=== PATIENT | male | born 1965 | race Caucasian/White ===

== ENCOUNTER 2019-05-09 08:40 | Emergency (ER) | payer OTHER ==
--- NOTE | 2019-05-09 11:08 | RAD REPORT ---
EXAM DESCRIPTION: US - Extremity Nonvascular Limited - 05/09/2019 10:56 am CLINICAL HISTORY: Knee COMPARISON: None FINDINGS: The left popliteal fossa is unremarkable. A Vang cyst is not visualized IMPRESSION: Negative for a Vang's cyst
--- NOTE | 2019-05-09 11:27 | EDPHYS ---
Physician Documentation [facility] Name: Angel Ulloa Age: 54 yrs Sex: Male : 1965 Arrival Date: 05/09/2019 Time: 08:44 Bed 18 Private MD: ED Physician Kal Grullon HPI: 05/09 09:24 This 54 yrs old Male presents to ER via Ambulatory with complaints of Leg kdr Pain. 09:24 The patient presents with decreased range of motion, an injury, pain, that is acute. kdr The complaints affect the posterior aspect of left knee and left calf. Context: The problem was sustained at home, resulted from Walking, the patient is not able to bear weight, the patient is not able to ambulate, Problem is a result from a previous injury: No. Onset: The symptoms/episode began/occurred acutely, today, at 08:10. Modifying factors: The symptoms are alleviated by remaining still, the symptoms are aggravated by movement, weight bearing, bending knee. Associated signs and symptoms: The patient has no apparent associated signs or symptoms. Treatment prior to arrival includes: kathleen wrap, icing the affected extremity. Severity of symptoms: At their worst the symptoms were severe, in the emergency department the symptoms are unchanged. The patient has not experienced similar symptoms in the past. The patient has not recently seen a physician. Historical: - Allergies: 09:06 Hydrocodone-Acetaminophen; em - Home Meds: 09:06 Lyrica Oral [Active]; Metformin Oral [Active]; simvastatin 10 mg Oral tab 1 tab once em daily [Active]; carvedilol 25 mg oral tab [Active]; aspirin 81 mg Oral chew 1 tab once daily [Active]; losartan 100 mg oral tab 1 tab once daily [Active]; Cialis 5 mg oral tab 1 tab [Active]; victoza 1.8 mg [Active]; Dexilant 60 mg oral CpDB [Active]; - PMHx: 09:06 Hypertension; Pneumonia; Diabetes - NIDDM; em - PSHx: 09:06 Cholecystectomy; incision and drainage; lumbar surgery; em - Immunization history:: Adult Immunizations up to date. - Social history:: Smoking status: Patient uses tobacco products, smokes one pack cigarettes per day. - Ebola Screening: : Patient negative for fever greater than or equal to 101.5 degrees Fahrenheit, and additional compatible Ebola Virus Disease symptoms Patient denies exposure to infectious person Patient denies travel to an Ebola-affected area in the 21 days before illness onset No symptoms or risks identified at this time. ROS: 10:44 Constitutional: Negative for fever, chills, and weight loss. kdr 10:44 MS/extremity: Positive for injury or acute deformity, decreased range of motion, pain, tenderness, of the posterior aspect of left knee and left calf. Exam: 10:44 Constitutional: This is a well developed, well nourished patient who is awake, alert, kdr and in no acute distress. Head/Face: Normocephalic, atraumatic. Eyes: Pupils equal round and reactive to light, extra-ocular motions intact. Lids and lashes normal. Conjunctiva and sclera are non-icteric and not injected. Cornea within normal limits. Periorbital areas with no swelling, redness, or edema. Neck: Trachea midline, no thyromegaly or masses palpated, and no cervical lymphadenopathy. Supple, full range of motion without nuchal rigidity, or vertebral point tenderness. No Meningismus. Chest/axilla: Normal chest wall appearance and motion. Nontender with no deformity. No lesions are appreciated. Cardiovascular: Regular rate and rhythm with a normal S1 and S2. No gallops, murmurs, or rubs. Normal PMI, no JVD. No pulse deficits. Abdomen/GI: Soft, non-tender, with normal bowel sounds. No distension or tympany. No guarding or rebound. No evidence of tenderness throughout. Back: No spinal tenderness. No costovertebral tenderness. Full range of motion. Skin: Warm, dry with normal turgor. Normal color with no rashes, no lesions, and no evidence of cellulitis. MS/ Extremity: Pulses equal, no cyanosis. Neurovascular intact. Full, normal range of motion. Neuro: Awake and alert, GCS 15, oriented to person, place, time, and situation. Cranial nerves II-XII grossly intact. Motor strength 5/5 in all extremities. Sensory grossly intact. Cerebellar exam normal. Normal gait. Psych: Awake, alert, with orientation to person, place and time. Behavior, mood, and affect are within normal limits. 10:44 Musculoskeletal/extremity: Extremities: grossly normal except: noted in the posterior kdr aspect of left knee and left calf: decreased ROM, pain, tenderness, Circulation is intact in all extremities. Sensation intact. Compartment Syndrome exam of affected extremity: is normal. no numbness, no tingling, no sensation deficit, no palor, no weak pulses, Weight bearing: can bear weight with assistance only. Vital Signs: 09:06 BP 140 / 99; Pulse 86; Resp 18; Temp 98.1(O); Pulse Ox 100% on R/A; Weight 106.59 kg; em Height 6 ft. 1 in. (185.42 cm); Pain 3/10; 10:08 BP 130 / 89; Pulse 84; Resp 16; Pulse Ox 99% on R/A; em 11:32 BP 141 / 86; Pulse 79; Resp 16; Pulse Ox 98% on R/A; em 09:06 Body Mass Index 31.00 (106.59 kg, 185.42 cm) em MDM: 11:26 Patient medically screened. kdr 12:28 Data reviewed: vital signs, nurses notes, lab test result(s), radiologic studies. kdr Counseling: I had a detailed discussion with the patient and/or guardian regarding: the historical points, exam findings, and any diagnostic results supporting the discharge/admit diagnosis, lab results, radiology results, the need for outpatient follow up. 05/09 09:23 Order name: US Extrmty Nonvasular Limited 05/09 09:23 Order name: Knee Left 3 View XRAY 05/09 10:47 Order name: Knee Immobilizer; Complete Time: 12:17 kdr 05/09 10:47 Order name: Crutches; Complete Time: 12:17 kdr Administered Medications: No medications were administered Disposition: 05/09/19 11:26 Discharged to Home. Impression: Pain in left knee, Sprain of other specified parts of knee. - Condition is Stable. - Discharge Instructions: Joint Pain, Musculoskeletal Pain, Crutch Use, Hypg-gi-Uwnh, Knee Pain, [id number]-Azfs. - Prescriptions for Tylenol- Codeine #3 300-30 mg Oral Tablet - take 2 tablets by ORAL route every 6 hours As needed; 16 tablet. - Medication Reconciliation Form, Thank You Letter, Work release form form. - Follow up: Private Physician; When: 2 - 3 days; Reason: If symptoms return, Further diagnostic work-up, Recheck today's complaints, Continuance of care, Re-evaluation by your physician. - Problem is new. - Symptoms have improved. Signatures: Dispatcher [employer] Kal Solis MD MD kdr Munoz, Edgar, ED TECH ED TECH em Corrections: (The following items were deleted from the chart) 12:21 11:26 05/09/2019 11:26 Discharged to Home. Impression: Pain in left knee; Sprain of em other specified parts of knee. Condition is Stable. Forms are Medication Reconciliation Form, Thank You Letter, Antibiotic Education, Prescription Opioid Use. Follow up: Private Physician; When: 2 - 3 days; Reason: If symptoms return, Further diagnostic work-up, Recheck today's complaints, Continuance of care, Re-evaluation by your physician. Problem is new. Symptoms have improved. kdr
--- NOTE | 2019-05-09 11:27 | ER ---
Nurse's Notes [facility] Name: Angel Ulloa Age: 54 yrs Sex: Male : 1965 Arrival Date: 05/09/2019 Time: 08:44 Bed 18 Private MD: Diagnosis: Pain in left knee;Sprain of other specified parts of knee Presentation: 05/09 08:58 Presenting complaint: Patient states: was walking about 1 hour ago and felt a pop on em the left leg behind left knee/top of calf area, no swelling or bruising noted, denies trauma. Transition of care: patient was not received from another setting of care. Onset of symptoms was May 09, 2019. Risk Assessment: Do you want to hurt yourself or someone else? Patient reports no desire to harm self or others. Initial Sepsis Screen: Does the patient meet any 2 criteria? No. Patient's initial sepsis screen is negative. Does the patient have a suspected source of infection? No. Patient's initial sepsis screen is negative. Care prior to arrival: ice pack applied to left calf area/behind left knee. 08:58 Method Of Arrival: Ambulatory em 09:11 Acuity: [place] 4 iw Historical: - Allergies: 09:06 Hydrocodone-Acetaminophen; em - Home Meds: 09:06 Lyrica Oral [Active]; Metformin Oral [Active]; simvastatin 10 mg Oral tab 1 tab once em daily [Active]; carvedilol 25 mg oral tab [Active]; aspirin 81 mg Oral chew 1 tab once daily [Active]; losartan 100 mg oral tab 1 tab once daily [Active]; Cialis 5 mg oral tab 1 tab [Active]; victoza 1.8 mg [Active]; Dexilant 60 mg oral CpDB [Active]; - PMHx: 09:06 Hypertension; Pneumonia; Diabetes - NIDDM; em - PSHx: 09:06 Cholecystectomy; incision and drainage; lumbar surgery; em - Immunization history:: Adult Immunizations up to date. - Social history:: Smoking status: Patient uses tobacco products, smokes one pack cigarettes per day. - Ebola Screening: : Patient negative for fever greater than or equal to 101.5 degrees Fahrenheit, and additional compatible Ebola Virus Disease symptoms Patient denies exposure to infectious person Patient denies travel to an Ebola-affected area in the 21 days before illness onset No symptoms or risks identified at this time. Screenin:06 Abuse screen: Denies threats or abuse. Nutritional screening: No deficits noted. em Tuberculosis screening: No symptoms or risk factors identified. Fall Risk None identified. Assessment: 09:06 General: Appears in no apparent distress. comfortable, Behavior is calm, cooperative, em Denies fever. Pain: Complains of pain in left calf and posterior aspect of left knee Pain currently is 4 out of 10 on a pain scale. at worst was 8 out of 10 on a pain scale. Pain began 2 hours ago. Neuro: Level of Consciousness is awake, alert, obeys commands, Oriented to person, place, time, situation. Cardiovascular: Capillary refill < 3 seconds Patient's skin is warm and dry. Respiratory: Airway is patent Respiratory effort is even, unlabored, Respiratory pattern is regular, symmetrical. Derm: Skin is intact, is healthy with good turgor, Skin is pink, warm \T\ dry. Musculoskeletal: Capillary refill < 3 seconds, Range of motion: limited in left knee Swelling absent. 11:32 Reassessment: Patient appears in no apparent distress at this time. Patient and/or em family updated on plan of care and expected duration. Pain level reassessed. Patient is alert, oriented x 3, equal unlabored respirations, skin warm/dry/pink. 11:50 Reassessment: Dr. Grullon at bedside. em Vital Signs: 09:06 BP 140 / 99; Pulse 86; Resp 18; Temp 98.1(O); Pulse Ox 100% on R/A; Weight 106.59 kg; em Height 6 ft. 1 in. (185.42 cm); Pain 3/10; 10:08 BP 130 / 89; Pulse 84; Resp 16; Pulse Ox 99% on R/A; em 11:32 BP 141 / 86; Pulse 79; Resp 16; Pulse Ox 98% on R/A; em 09:06 Body Mass Index 31.00 (106.59 kg, 185.42 cm) em ED Course: 08:44 Patient arrived in ED. mr 08:46 Kal Grullon MD is Attending Physician. kdr 08:51 [place] Haque LVN is Primary Nurse. em 09:06 Arm band placed on. em 09:06 Patient has correct armband on for positive identification. Placed in gown. Bed in low em position. Call light in reach. Pulse ox on. NIBP on. 09:11 Triage completed. iw 12:00 Crutch training done. Knee immobilizer applied on left knee. em 12:18 No provider procedures requiring assistance completed. Patient did not have IV access em during this emergency room visit. Administered Medications: No medications were administered Outcome: 11:26 Discharge ordered by . kdr 12:18 Discharged to home via wheelchair. em 12:18 Condition: good 12:18 Discharge instructions given to patient, Instructed on discharge instructions, follow up and referral plans. medication usage, crutch walking, Demonstrated understanding of instructions, follow-up care, medications, Prescriptions given X 1. 12:21 Patient left the ED. em Signatures: Kal Grullon MD MD kdr Rivera, Mary mr Munoz, Edgar, WAREHOUSE WORKER 2ND SHIFT WAREHOUSE WORKER 2ND SHIFT em Dennise Boston, RN RN iw
--- NOTE | 2019-05-09 11:49 | RAD REPORT ---
EXAM DESCRIPTION: RAD - Knee Left 3 View - 05/09/2019 11:42 am CLINICAL HISTORY: Left knee pain status post injury FINDINGS: No fracture or dislocation is seen.
== END 2019-05-09 12:21 | disposition home or self-care (01) ==
LOC: ER 08:40
DX: S83.92XA Sprain of unspecified site of left knee, initial encounter (principal); I10 Essential (primary) hypertension; E11.9 Type 2 diabetes mellitus without complications; Y93.01 Activity, walking, marching and hiking; Y93.89 Activity, other specified; Y92.9 Unspecified place or not applicable; Z88.6 Allergy status to analgesic agent
CPT/HCPCS: 76882; 99283

== ENCOUNTER 2021-09-23 09:30 | Day surgery (SDC) | payer OTHER ==
[2021-09-21 14:48] LABS: Absolute Lymphocytes (CBC) 2.2 K/uL (0.7-4.9); Hematocrit 54.8 % (39.6-49.0); Lymphocytes % 20.4 % (15.3-44.8); MPV 9.1 fL (7.6-11.3); RBC Red Blood Cell Count 6.49 M/uL (4.33-5.43)
[2021-09-21 14:49] LABS: Protime INR 0.98
--- NOTE | 2021-09-21 14:52 | RAD REPORT ---
EXAM DESCRIPTION: RAD - Chest Pa And Lat (2 Views) - 09/21/2021 2:32 pm CLINICAL HISTORY: pre op pending arm surgery COMPARISON: CHEST PA AND LAT 2 VIEW dated 01/05/2010; CHEST SINGLE VIEW dated 05/27/2009 FINDINGS: Lines: None. Lungs: No evidence of edema or pneumonia. Pleural: No significant pleural effusions or pneumothorax. Cardiac: The heart size is within normal limits. Bones: No acute fractures. ACDF in the cervical spine. Other: IMPRESSION: No acute cardiopulmonary disease.
[2021-09-21 14:56] LABS: Potassium 4.1 mmol/L (3.5-5.1)
[2021-09-23] MEDS ORDERED: NA CHLORIDE 0.9% 1,000 ML ONE (09:51)
[2021-09-23] MEDS ORDERED: CEFAZOLIN/SWI 2gm 2 GM/20 ML SYR ONE (09:51)
[2021-09-23] MEDS ORDERED: FENTANYL CITR 100 MCG/2 ML ONE ×2 (10:38→12:45)
[2021-09-23] MEDS ORDERED: LIDOCAINE 1% MPF 5 ML VIAL ONE (10:39)
[2021-09-23] MEDS ORDERED: propofoL 200 MG/20 ML VIAL IV ONE (10:39)
[2021-09-23] MEDS ORDERED: MIDAZOLAM HCL 2 MG/2 ML INJ ONE (10:39)
--- NOTE | 2021-09-23 14:17 | P.BOP ---
Preoperative diagnosis: left distal biceps rupture Postoperative diagnosis: same Primary procedure: left distal biceps repair Project Control Analyst: NONE,NONE Estimated blood loss: 10 cc Specimen: none Findings: see dictation Anesthesia: General Complications: None Implants: Arthrex distal biceps button Fluids & blood products: per anesthesia record Transferred to: Recovery Room Condition: Good
[2021-09-23] MEDS ORDERED: ONDANSETRON 4 MG/2 ML VIAL ONE (14:37)
[2021-09-23] MEDS: HYDROMORPHONE HCL 1 MG/ML INJ ONE ×2 (14:47→15:13)
[2021-09-23] MEDS ORDERED: PROMETHAZINE INJ 25 MG/ML AMP ONE (14:56)
--- NOTE | 2021-09-23 15:09 | RAD REPORT ---
EXAM DESCRIPTION: RAD - Fluoroscopy <1 Hour - 09/23/2021 2:56 pm CLINICAL HISTORY: Biceps tendon repair FINDINGS: Plate has been anchored into the radius. 11 fluoroscopic spot images are submitted. Fluoroscopy time 0.3 minutes The examination was performed by Dr. Caldwell
--- NOTE | 2021-09-23 15:18 | RAD REPORT ---
EXAM DESCRIPTION: RAD - Elbow Left 2 View - 09/23/2021 2:57 pm CLINICAL HISTORY: Left elbow surgery FINDINGS: Suboptimal frontal view left elbow secondary to difficulty with patient positioning. A plate has been placed adjacent to the proximal radius. Postsurgical changes noted. No fracture or dislocation seen
[2021-09-23] MEDS ORDERED: TRAMADOL HCL 50 MG TAB ONE (16:02)
[2021-09-23 17:21] VITALS: BP 145/96; TEMP 97.2; O2SAT 98
--- NOTE | 2021-09-24 22:23 | OP ---
Date of Procedure: 09/23/2021 Surgeon: Clayton Caldwell MD Preoperative Diagnosis: Left distal biceps rupture. Postoperative Diagnosis: Left distal biceps rupture. Procedure Performed: Left distal biceps repair. Anesthesia: General LMA. Fluids: Per Anesthesia record. Ebl: 10 mL. Complications: None. Implants: An Arthrex distal biceps button. Indication For Procedure: Angel is a 56-year-old male who presented to the clinic with signs, sympto ms, and MRI findings consistent with a left distal biceps rupture that was over 3 weeks' old. The asad hanna had pain and weakness with his left arm. I discussed with the patient at length the risks and benefits associated with operative and nonoperative treatment. He expressed understanding and electe d to proceed with operative treatment. Description Of Procedure: After informed consent was obtained, the patient was identified in the pre operative holding area. The left upper extremity was marked. The patient was then brought back to [facility] operating room, transferred to the operating room table in supine fashion, and placed under genera l LMA anesthesia. The left upper extremity was then prepped and draped in usual sterile fashion. A time-out was initiated. Correct patient and procedure were confirmed and identified. The patient re ceived his preoperative prophylactic antibiotics. A sterile tourniquet was placed but was not inflat ed. An S-type incision was made just distal to the antecubital fossa consistent with an anterior caitlin ann to the elbow. Dissection was first taken to the level of the fascia protecting the lateral ant ebrachial cutaneous nerve at all times. Fascia plane was then identified and clipped, and through fi nger dissection the distal biceps tendon was found stump within the mid arm approximately 3 inches pr oximal to the antecubital fossa. An outstretcher was then used to retrieve the tendon stump and was brought out through the incision. There was significant retraction and tightness of the tendon, and the adhesions were then released using finger dissection. However, there was still significant retra ction noted with difficult reduction to the radial tuberosity. The distal biceps tendon stump was th en cleaned and fashioned, and it was measured and able to fit through a 7-mm tunnel. The distal 3 cm of the tendon stump was then whipstitched using a FiberLoop. There was marked at approximately 1 cm proximal to the end of the tendon and then placed with a new incision. Next, attention was taken to the dissection up to the greater tuberosity. The palm was held in supination at all times to protec lynn PIN. Once the greater bicipital tuberosity was noted using fluoroscopy, and using a [place] elevat or and soft tissue was then debrided using a soft tissue elevator. A guide pin was then placed in bi cortical fashion and ulnarly to protect the PIN at all times. Given the prior measured fitting of 7 mm, a 7.5-mm tunnel was then made. A biceps button was placed under that suture and then placed thro ugh the proximal radius and the button was flipped. The tendon was then docked within the tunnel, an d given the significant retraction, the tendon was not completely docked until the elbow was near 90 degrees of flexion. Any extension of the elbow would put significant tension on the repair. One of the suture limbs was then passed through the biceps tendon near its docking site and tied for complet ion of the fixation. The backup fixation using an interference screw was then attempted. However, w e were not able to place the screw given the significant flexion of the elbow and tightness of the sc rew within the tunnel, and there was overall good fixation of the tendon. The elbow was ranged, and there was no movement of the tendon or retraction of the tendon outside of the tunnel. The wound was then irrigated thoroughly with normal saline. Subcutaneous tissue was approximated using a 2-0 Vicr yl. Skin was approximated using a 3-0 Monocryl. Sterile dressings were applied. The patient's elbo w was then placed in a posterior splint to protect the repair. We will transition slowly to an elbow brace to begin gentle range of motion exercises at approximately 2 weeks postop. CV/MODL Voice ID: [id number] Report ID: [id number]
== END 2021-09-23 16:26 | disposition home or self-care (01) ==
LOC: OR 09:30
PROVIDERS: ATTEND Orthopaedic Surgery Sports Medicine
PROC: 0LQ40ZZ Repair Left Upper Arm Tendon, Open Approach (ICD-10-PCS; principal; 2021-09-23 11:15)
DX: S46.212A Strain of muscle, fascia and tendon of other parts of biceps, left arm, initial encounter (principal); M25.522 Pain in left elbow
CPT/HCPCS: 93005; 85025; 80048; 36415; 85610; 82947 ×2; 85730; 71046; 76000; 73070; 24341; J2704; J2550; J2250; J3010 ×2; J1170; J0690; J7030; J2405

== ENCOUNTER 2022-01-04 08:00 | Day surgery (SDC) | payer OTHER ==
[2022-01-03 15:19] LABS: Absolute Lymphocytes (CBC) 2.4 K/uL (0.7-4.9); Hematocrit 52.1 % (39.6-49.0); Lymphocytes % 23.9 % (15.3-44.8); MPV 9.7 fL (7.6-11.3); RBC Red Blood Cell Count 6.11 M/uL (4.33-5.43)
[2022-01-03 15:31] LABS: Potassium 3.9 mmol/L (3.5-5.1)
[2022-01-04] MEDS ORDERED: NA CHLORIDE 0.9% 50 ML ONE (08:26)
[2022-01-04] MEDS ORDERED: NA CHLORIDE 0.9% 1,000 ML ONE (08:26)
[2022-01-04] MEDS: CEFAZOLIN SODIUM 1 GM/VIAL ONE ×2 (09:13→10:15)
[2022-01-04] MEDS ORDERED: MIDAZOLAM HCL 2 MG/2 ML INJ ONE (09:59)
[2022-01-04] MEDS ORDERED: FENTANYL CITR 100 MCG/2 ML ONE (09:59)
[2022-01-04] MEDS ORDERED: propofoL 200 MG/20 ML VIAL IV ONE (09:59)
[2022-01-04] MEDS ORDERED: LIDOCAINE 1% MPF 5 ML VIAL ONE (09:59)
[2022-01-04] MEDS ORDERED: ROCURONIUM 50 MG/5 ML VIAL IV ONE (09:59)
[2022-01-04] MEDS ORDERED: dexAMETHasone 10 MG/ML VIAL ONE (10:31)
[2022-01-04] MEDS ORDERED: KETOROLAC 30 MG/ML INJ ONE (10:32)
[2022-01-04] MEDS ORDERED: ONDANSETRON 4 MG/2 ML VIAL ONE (10:46)
[2022-01-04] MEDS ORDERED: GLYCOPYRROLATE 0.2 MG/ML SYR ONE (11:00)
[2022-01-04] MEDS ORDERED: NEOSTIGMINE 1 MG/ML -5 ML ONE (11:00)
--- NOTE | 2022-01-04 11:05 | P.BOP ---
Preoperative diagnosis: 1. Tender ventral epigastric hernia 2. tender Incisional Umbilical hernia Postoperative diagnosis: same, intrabd adhesions Primary procedure: 1. Laparoscopic repair tender ventral epigastric hernia with mesh Secondary procedure: 2. Laparoscopic repair tender incisional hernia with mesh Cable Maker: CHARLENE POPE (CONSUMER [employer]VOCATE) Estimated blood loss: <10cc Specimen: hernia sac x 2 Findings: two separate hernia Anesthesia: General Complications: None Drain(s): Other Implants: ventralex medium Transferred to: Recovery Room Condition: Good
[2022-01-04] MEDS ORDERED: Mastisol Adhesive Liq ONE (11:08)
[2022-01-04 13:18] VITALS: BP 126/74; TEMP 96; O2SAT 96
--- NOTE | 2022-01-04 23:51 | OP ---
Date of Procedure: 01/04/2022 Surgeon: Je Taylor MD Preoperative Diagnoses: 1.Ventral tender hernia. 2.Umbilical incisional hernia. Postoperative Diagnoses: 1.Ventral tender hernia. 2.Umbilical incisional hernia. Procedures: 1.Laparoscopic repair of ventral hernia with mesh. 2.Laparoscopic repair of incisional umbilical hernia with mesh. Anesthesia: General plus local. Estimated Blood Loss: Less than 5 cc. Complications: None. Implant: A Ventralex mesh medium. Indication: This is the case of a 56-year-old patient, who comes to us with 2 hernias, 1 in the umbi lical region where he has a previous incision, another 1 on the ventral region several centimeters aw ay from the medical area between epigastric and umbilical region. The benefits, alternatives, and ri sks of repair of both of them were fully explained, which include, but not limited to, infection, ble eding, damage to adjacent structures, and anesthesia complication, recurrence, PA, and even . Keshav muniz also understands this may not relieve his symptoms. He might need more than one surgical intervent ion to it. He also understands that we might use mesh in that region. Pros and cons of mesh placeme nt were discussed with the patient. All the questions were answered to his satisfaction. He was adv ised importance also of losing weight and no heavy lifting. He signed a consent. Description Of Procedure: The patient was brought to the operating room, placed in supine position. Anesthesia was done without complication. Abdominal area was prepped and draped in the usual steril e fashion. Local anesthesia was applied. We proceeded to go to the previous incision in the umbilic al area, since we could access the abdomen through that opening, so umbilical incision was made. Inc ision was carried down, found the hernia sac and noticed some omentum trapped in that area, but after releasing some adhesions, we were able to reduce it back into the abdominal cavity. We put a Westley trocar. Pneumoperitoneum was obtained. 5 mm trocars were placed inside of the abdomen. This allow ed me to put a 5 mm trocar and checked the area of the midline. Once again, we noticed to have adhes ions in that area with omentum trapped in the ventral region hernia. With the help of LigaSure, we p roceeded to act under direct visualization, ligate those adhesions, and we were able to reduce the co ntent. We selected a mesh that will cover umbilical and ventral region at the same time with overlap for about 3 to 5 cm. We were able to avoid an incision in the epigastric region by going subcutaneo usly and find the hernia defects, the one that is more cephalad and we placed a Westley trocar through it and closed the umbilical hernia #1 Vicryl, placed the mesh through the Westley trocar, removed the Westley trocar, put #1 Vicryl inside the fascia just approximating, no tight yet. We went underneath and pneumoperitoneum was obtained. I pulled the strap of this mesh against the abdominal wall to ma ke sure it was nice and flat and secured that with capture fixation device. Strap was removed. Furt her fixation was done until it was completely flat to diminish the chance of any bowel in between. A t that moment, I proceeded then to approximate the fascia with #1 Vicryl. This created air seal in t hat region. Once again, we checked the area of the adhesions that were removed, it looked intact, th e mesh cover both defects. At that moment, I proceeded to deflate pneumoperitoneum. Removed the tro cars under direct visualization, and then after that, a closed subcutaneous tissue with 3-0 chromic a nd skin in subcuticular fashion with 3-0 chromic with Steri-Strips on top. Sponge count and instrume nt count were correct. The patient tolerated the procedure well. The patient was sent to Recovery i n stable condition. DISCHARGE SUMMARY Diagnosis: Ventral and umbilical hernia. Procedures: Laparoscopic repair of ventral and umbilical hernia with mesh. Disposition: To home. Activity: As tolerated. No heavy lifting. Follow up in my office in 1 week, call for appointment [phone]. Keep area dry for 48 hours and then may shower. Keep Steri-Strip intact. The patient advised to use abdominal binder. Home medications were called in previously and Ultracet and Bactrim. HM/MODL Voice ID: [id number] Report ID: [id number]
== END 2022-01-04 12:30 | disposition home or self-care (01) ==
LOC: OR 08:00
PROVIDERS: ATTEND Surgery
PROC: 0WUF4JZ Supplement Abdominal Wall with Synthetic Substitute, Percutaneous Endoscopic Approach (ICD-10-PCS; 2022-01-04)
PROC: 0WUF4JZ Supplement Abdominal Wall with Synthetic Substitute, Percutaneous Endoscopic Approach (ICD-10-PCS; principal; 2022-01-04 09:30)
DX: K43.9 Ventral hernia without obstruction or gangrene (principal); K42.9 Umbilical hernia without obstruction or gangrene; I10 Essential (primary) hypertension; F41.9 Anxiety disorder, unspecified; E11.9 Type 2 diabetes mellitus without complications; F17.210 Nicotine dependence, cigarettes, uncomplicated; Z20.822 Contact with and (suspected) exposure to COVID-19; G47.30 Sleep apnea, unspecified
CPT/HCPCS: 85025; 80048; 36415; 82947 ×2; 88302; 49652 ×2; U0003; J2704; J2250; J3010; J1100; J2710; J7030; J2405; J0690